=== PATIENT | male | born 1975 | race Caucasian/White ===

== ENCOUNTER 2018-10-19 14:45 | Outpatient (RCR) | payer MEDICARE ==
[~2018-10-19 14:45] MED LIST: NO HOME MEDICATIONS; NORCO 325 MG-51 TAB PO
== END 2018-10-22 09:17 | disposition home or self-care (01) ==
LOC: MKS.ESL.PT 14:45
DX: M54.5 Low back pain (principal); M15.9 Polyosteoarthritis, unspecified

== ENCOUNTER 2019-07-03 14:30 | Outpatient (RCR) | payer MEDICARE, MEDICAID | END 2019-09-12 | disposition still patient (30) | LOC: MKS.ESL.PT | DX: M76.51 Patellar tendinitis, right knee (principal) ==

== ENCOUNTER 2019-11-09 09:45 | Emergency (ER) | payer MEDICARE, MEDICAID ==
[~2019-11-09] VITALS: Ht 165.1 cm; Wt 98.6 kg
[2019-11-09 09:50] VITALS: TEMP 97.6
[2019-11-09] MEDS ORDERED: CLARITIN 1010 MG/TAB PO (09:58)
[2019-11-09] MEDS ORDERED: ASPIRIN 81M81 MG/TA2 PO (09:59)
[2019-11-09] MEDS ORDERED: PRILOSEC 20MG20 MG PO (09:59)
[2019-11-09 10:37] LABS: BASO # 0.1 (0.0-0.2); BASO % 1.2 % (0.0-2.0); EOS # 0.1 (0.0-0.7); EOS % 2.3 % (0-4.0); GRAN # 3.4 (1.4-6.5); GRAN % 59.6 % (42.2-75.2); HEMATOCRIT 45.1 % (42.0-52.0); HEMOGLOBIN 15.2 g/dl (13.5-18.0); LYMPH # 1.7 (1.2-3.4); LYMPH % 30.3 % (20.0-51.0); MEAN CELL VOLUME 93 fl (80.0-100.0); MEAN CORPUSCULAR HEMOGLOBIN 32 pg (27.0-31.0); MEAN CORPUSCULAR HGB CONC 34 g/dl (33.0-37.0); MEAN PLATELET VOLUME 8.4 fl (7.4-10.4); MONO # 0.4 (0.1-0.6); MONO % 6.3 % (1.7-9.3); PLATELET COUNT 204 K/mm3 (130-400); RED BLOOD COUNT 4.83 M/mm3 (4.20-5.60)
[2019-11-09 10:50] LABS: ALANINE AMINOTRANSFERASE 29 U/L (4-49); ALKALINE PHOSPHATASE 73 U/L (50-136); ANION GAP 6 mmol/L (7-16); AST,SGOT 38 U/L (15-37); BILIRUBIN,TOTAL 0.6 mg/dL (0.0-1.0); BLOOD UREA NITROGEN 13 mg/dL (9-20); CALCIUM 9.2 mg/dL (8.4-10.2); CARBON DIOXIDE 27 mmol/L (22-30); CHLORIDE 104 mmol/L (98-107); CREATININE, serum 1.03 (0.66-1.25); GLUCOSE 110 mg/dL (74-106); POTASSIUM 4.3 mmol/L (3.4-5.0); SODIUM 137 mmol/L (137-145); TOTAL PROTEIN 7.7 gm/dL (6.4-8.2)
[2019-11-09 10:51] LABS: C-REACTIVE PROTEIN < 0.5 mg/dL (0.0-0.9)
[2019-11-09 11:20] LABS: ERYTHROCYTE SEDIMENTATION RATE 6 mm/hr (0-15)
[2019-11-09 13:29] VITALS: BP 107/76; PULSE 72
== END 2019-11-09 13:29 | disposition home or self-care (01) ==
LOC: COL.ER 09:45
PROVIDERS: Nurse Practitioner
DX: R51 Headache (principal); Z79.82 Long term (current) use of aspirin
CPT/HCPCS: J2270; J2405; J7030